=== PATIENT | female | born 1950 | race Caucasian/White ===

== ENCOUNTER 2020-07-02 11:52 | Outpatient (CLI) | payer MEDICARE, OTHER ==
[2020-07-02 15:09] LABS: Anion Gap 19 mmol/L (10-20); BUN (Urea Nitrogen) 24 mg/dL (9.8-20.1); Calc. Creatinine Clearance 0 mL/min (70-130); Calcium 10.1 mg/dL (7.8-10.44); Carbon Dioxide 24 mmol/L (23-31); Chloride 102 mmol/L (98-107); Glucose 154 mg/dL (83-110); Potassium 5.7 mmol/L (3.5-5.1); Sodium 139 mmol/L (136-145)
[2020-07-02 15:11] LABS: Hemoglobin 11.2 g/dL (12.0-15.5); Mean Corpuscular HGB CONC 30.8 g/dL (32.0-36.0); Mean Corpuscular Hemoglobin 30.2 pg (27.0-33.0); Mean Corpuscular Volume 98.1 fl (81.6-98.3); Mean Platelet Volume 11.1 fl (7.4-10.4); Platelet Count 232 10x3/uL (150-450); RBC Distribution Width 14.9 % (11.5-14.5); Red Blood Cell (RBC) Count 3.71 10x6/uL (3.90-5.03); White Blood Cell (WBC) Count 7.4 10x3/uL (3.5-10.5)
[2020-07-03 01:53] LABS: SARS-CoV-2 PCR by NAA Not Detected (NotDetected)
== END 2020-07-02 11:53 | disposition home or self-care (01) ==
LOC: CSHLAB 11:52
PROVIDERS: ATTEND Orthopaedic Surgery
DX: Z01.818 Encounter for other preprocedural examination (principal); Z20.822 Contact with and (suspected) exposure to COVID-19
CPT/HCPCS: 80048; 83036; 85027; 87081; 87635; 93005; 93010; U0003; U0005

== ENCOUNTER 2020-07-02 12:00 | Inpatient (IN) | payer MEDICARE, OTHER ==
[2020-07-07] MEDS ORDERED: Acetaminophen 500 MG TAB ONE (05:54)
[2020-07-07] MEDS ORDERED: Lidocaine 1% MPF 2 ML VIAL ONE (05:55)
[2020-07-07] MEDS ORDERED: CeleCOXIB 100 MG CAP ONE (05:55)
[2020-07-07] MEDS ORDERED: Gabapentin 300 MG CAP ONE (05:55)
[2020-07-07] MEDS ORDERED: Ropivacaine 0.2% HCl/PF 20 ML ONE (06:18)
[2020-07-07] MEDS ORDERED: Ropivacaine 0.5% HCl/PF (150 MG/30 ML VIAL) ONE (06:18)
[2020-07-07] MEDS ORDERED: EPINEPHrine 1 MG/ML AMP ONE ×2 (06:18→06:33)
[2020-07-07] MEDS ORDERED: Lidocaine 1% PF 5 ML VIAL ONE ×2 (06:19→07:11)
[2020-07-07] MEDS ORDERED: Midazolam HCl 2 mg/2 ml Vial ONE (06:19)
[2020-07-07] MEDS ORDERED: Fentanyl 100 MCG/2 ML VIAL ONE (06:19)
[2020-07-07] MEDS ORDERED: Ketorolac Tromethamine 30 MG/ML VIAL ONE ×2 (06:33→11:30)
[2020-07-07] MEDS ORDERED: Milk Of Magnesia 30 ML UDCUP PO PRN (06:34)
[2020-07-07] MEDS ORDERED: Ondansetron PF 4 MG/2 ML Vial IVP PRN (06:34)
[2020-07-07] MEDS ORDERED: HYDROcodone/Acetaminophen 10/325 mg Tablet PO PRN (06:34)
[2020-07-07] MEDS ORDERED: Bisacodyl 10 MG SUPP PR PRN (06:34)
[2020-07-07] MEDS ORDERED: Acetaminophen 325 MG TAB PO PRN (06:34)
[2020-07-07] MEDS ORDERED: diphenhydrAMINE 50 MG CAP PO PRN (06:34)
[2020-07-07] MEDS ORDERED: Tranexamic Acid 1,000 MG/10 ML VIAL ONE (06:34)
[2020-07-07] MEDS ORDERED: Morphine 2 MG/ML VIAL SLOW IVP PRN (06:34)
[2020-07-07] MEDS ORDERED: traMADol HCl 50 MG TAB PO PRN (06:34)
[2020-07-07] MEDS ORDERED: Morphine 1 ML ONE (06:34)
[2020-07-07] MEDS ORDERED: Lidocaine 1% w/Epinephrine 1:100K 20 ML VIAL ONE (06:35)
[2020-07-07] MEDS ORDERED: Ropivacaine 0.2% HCl/PF 40 ML ONE (06:35)
[2020-07-07] MEDS ORDERED: Lidocaine 2% Jelly 5 ML TUBE ONE (07:08)
[2020-07-07] MEDS ORDERED: PROPOFOL 20 ML ONE (07:11)
[2020-07-07] MEDS ORDERED: Rocuronium Bromide 10 MG/ML (10ML VIAL) ONE (07:11)
[2020-07-07] MEDS ORDERED: PHENYLEPHRINE-NS 100 MCG/ML 10 ML SYRINGE ONE (07:28)
[2020-07-07] MEDS ORDERED: ePHEDrine 50 MG/ML VIAL ONE (07:35)
[2020-07-07] MEDS ORDERED: Phenylephrine 10 MG/ML VIAL ONE (07:44)
[2020-07-07] MEDS ORDERED: Albuterol Sulfate HFA (OR ONLY) ONE (09:07)
[2020-07-07] MEDS ORDERED: Glycopyrrolate 0.2 MG/ML 5 ML SYRINGE ONE (09:07)
[2020-07-07] MEDS ORDERED: Ondansetron PF 4 MG/2 ML Vial ONE (09:08)
[2020-07-07] MEDS ORDERED: diphenhydrAMINE 50 MG/ML VIAL ONE ×2 (09:38→09:39)
[2020-07-07] MEDS: Sodium Chloride 0.9% 1,000 ML IV SCH ×2 (12:00→22:03)
[2020-07-07] MEDS: Ketorolac Tromethamine 30 MG/ML VIAL IVP SCH ×2 (12:07→18:05)
[2020-07-07] MEDS: Clindamycin/D5W 900 MG in Premix Bag 1 BAG IVPB SCH ×2 (12:08→17:50)
[2020-07-07 14:02] VITALS: BMI 49.3
[2020-07-07] MEDS: Famotidine 20 MG TAB PO SCH (22:02)
[2020-07-08] MEDS: Ketorolac Tromethamine 30 MG/ML VIAL IVP SCH ×3 (00:18→11:19)
[2020-07-08] MEDS: Famotidine 20 MG TAB PO SCH (09:49)
[2020-07-08 11:58] VITALS: BP 98/65; TEMP 97.3
== END 2020-07-08 12:40 | disposition home health service (06) | DRG 465 ==
LOC: CSHTELE 07-07 05:57
PROVIDERS: ADMIT Orthopaedic Surgery; ATTEND Orthopaedic Surgery
PROC: 0RRJ00Z Replacement of Right Shoulder Joint with Reverse Ball and Socket Synthetic Substitute, Open Approach (ICD-10-PCS; principal; 2020-07-07)
PROC: 0JB70ZZ Excision of Back Subcutaneous Tissue and Fascia, Open Approach (ICD-10-PCS; 2020-07-07)
DX: M19.111 Post-traumatic osteoarthritis, right shoulder (principal); R22.2 Localized swelling, mass and lump, trunk; M25.711 Osteophyte, right shoulder; M81.0 Age-related osteoporosis without current pathological fracture; M75.101 Unspecified rotator cuff tear or rupture of right shoulder, not specified as traumatic; E11.9 Type 2 diabetes mellitus without complications; I10 Essential (primary) hypertension; E78.00 Pure hypercholesterolemia, unspecified; Z79.84 Long term (current) use of oral hypoglycemic drugs; Z79.82 Long term (current) use of aspirin; Z88.5 Allergy status to narcotic agent; Z88.0 Allergy status to penicillin; Z79.899 Other long term (current) drug therapy
CPT/HCPCS: 88304; C1713; J0171; J1200; J1885; J2250; J2270; J2370; J2405; J2704; J2795; J3010; J3370; J3490

== ENCOUNTER 2021-10-02 12:44 | Inpatient (IN) | payer MEDICARE, OTHER ==
[2021-10-02 14:10] LABS: ALT (SGPT) 18 U/L (8-55); AST (SGOT) 24 U/L (5-34); Albumin 3.8 g/dL (3.4-4.8); Alkaline Phosphatase 179 U/L (40-110); Anion Gap 16 mmol/L (10-20); BUN (Urea Nitrogen) 78 mg/dL (9.8-20.1); Bilirubin, Total 0.5 mg/dL (0.2-1.2); Calc. Creatinine Clearance 0 mL/min (70-130); Calcium 9.5 mg/dL (7.8-10.44); Carbon Dioxide 24 mmol/L (23-31); Chloride 106 mmol/L (98-107); Estimated GFR 16; Globulin 3.3 g/dL (2.4-3.5); Glucose 94 mg/dL (83-110); Potassium 6.2 mmol/L (3.5-5.1); Protein, Total 7.1 g/dL (5.8-8.1); Sodium 140 mmol/L (136-145)
[2021-10-02 14:16] LABS: Hemoglobin 7.1 g/dL (12.0-15.5); Mean Corpuscular HGB CONC 31.7 g/dL (32.0-36.0); Mean Corpuscular Hemoglobin 31.8 pg (27.0-33.0); Mean Corpuscular Volume 100.4 fl (81.6-98.3); Mean Platelet Volume 9.3 fl (7.4-10.4); Platelet Count 271 10x3/uL (150-450); RBC Distribution Width 16.7 % (11.5-14.5); Red Blood Cell (RBC) Count 2.23 10x6/uL (3.90-5.03); White Blood Cell (WBC) Count 8.6 10x3/uL (3.5-10.5)
[2021-10-02 14:24] LABS: SARS-CoV-2 NAA Rapid Test Not Detected (NotDetected)
[2021-10-02 14:42] LABS: Bilirubin Neg (Negative); Blood, Urine Negative (Negative); Clarity Clear (Clear); Glucose, Urine (Dipstick) Normal (Negative); Ketone, Urine Negative (Negative); Leukocyte Negative (Negative); Nitrite Negative (Negative); Protein, Urine (Dipstick) Negative (Neg-Trace); Urobilinogen Normal mg/dL (Less than 2)
[2021-10-02 15:03] LABS: Band 5 % (5-11); Eosinophils 1 % (0-10); Lymphocytes 25 % (21-51); Monocytes 10 % (0-10)
[2021-10-02 15:05] LABS: Anisocytosis SLIGHT = 6-15 cells (100X) (0-5/hpf); Hypochromia SLIGHT = 6-15 cells (100X) (0-5/hpf); Macrocytosis SLIGHT = 6-15 cells (100X) (0-5/hpf); Microcytosis SLIGHT = 6-15 cells (100X) (0-5/hpf); Neutrophil 57 % (42-75)
[2021-10-02 15:07] LABS: MDiff Complete? YES; Platelet Morphology Comment Appears Adequate
[2021-10-02] MEDS ORDERED: Calcium Gluc 4.6 MEQ/10 ML (100 MG/ML) ONE (15:37)
[2021-10-02] MEDS ORDERED: Dextrose 50% Abboject 50 ML SYRINGE ONE (15:37)
[2021-10-02] MEDS ORDERED: Insulin Regular 300 UNITS/3 ML VIAL ONE (15:38)
[2021-10-02] MEDS ORDERED: Albuterol Sulfate 2.5 mg/0.5 ml Neb ONE (15:41)
[2021-10-02] MEDS ORDERED: Albuterol Sulfate 2.5 mg/3 ml Neb ONE ×2 (15:42→15:43)
[2021-10-02] MEDS ORDERED: Acetaminophen 500 MG TAB ONE (15:59)
[2021-10-02 16:10] LABS: Actual Bicarbonate (HCO3a) 24.3 mEq/L (22-28); Base Excess (BEa) -0.7 mEq/L (-2.0 to +3.0); CO2 Tension 41.9 mmHg (35.0-45.0); Calcium, Ionized (arterial) 1.29 mmol/L (1.12-1.30); Carboxyhemoglobin (COHb) 0.7 gm% (0.0-3.0); Hemoglobin (Hb) 6.7 g/dL (12.0-16.0); O2 Tension (PaO2), arterial 225.2 mmHg (> 70.0); Potassium - ABG Lab 5.6 mmol/L (3.70-5.30); Puncture Site LRA; pH, Arterial 7.38 (7.35-7.45)
[2021-10-02 16:11] LABS: ALV-art Gradient 78.925 mmHg (0-20)
[2021-10-02] MEDS ORDERED: Furosemide 40 MG/4 ML VIAL ONE (16:35)
[2021-10-02] MEDS ORDERED: Ondansetron PF 4 MG/2 ML Vial IVP PRN (16:49)
[2021-10-02] MEDS ORDERED: Senokot S 8.6-50 MG TAB PO PRN (16:49)
[2021-10-02] MEDS ORDERED: HumaLOG 300 UNITS/3 ML VIAL SC PRN (17:50)
[2021-10-02] MEDS ORDERED: Dextrose 5% in Water 1,000 ML IV PRN (17:50)
[2021-10-02] MEDS ORDERED: Dextrose 50% Abboject 50 ML SYRINGE SLOW IVP PRN (17:50)
[2021-10-02] MEDS ORDERED: hydrALAZINE 20 MG/ML VIAL SLOW IVP PRN (17:54)
[2021-10-02 20:18] LABS: Anion Gap 17 mmol/L (10-20); BUN (Urea Nitrogen) 75 mg/dL (9.8-20.1); Calc. Creatinine Clearance 0 mL/min (70-130); Carbon Dioxide 21 mmol/L (23-31); Chloride 110 mmol/L (98-107); Estimated GFR 17; Glucose 116 mg/dL (83-110); Potassium 4.9 mmol/L (3.5-5.1); Sodium 143 mmol/L (136-145)
[2021-10-02] MEDS ORDERED: Acetaminophen 325 MG TAB ONE (22:03)
[2021-10-02] MEDS: Acetaminophen 325 MG TAB PO PRN (22:10)
[2021-10-03] MEDS ORDERED: Ondansetron PF 4 MG/2 ML Vial ONE (03:08)
[2021-10-03] MEDS ORDERED: Acetaminophen 325 MG TAB ONE ×2 (03:09→10:11)
[2021-10-03] MEDS: Acetaminophen 325 MG TAB PO PRN ×2 (03:15→22:37)
[2021-10-03 03:57] LABS: #Eosinphils 0.1 10x3/uL (0.0-0.5); #Monocytes 1.1 10x3/uL (0.0-1.1); #Neutrophils 3.9 10x3/uL (1.5-8.4); %Basophils 0.5 % (0.0-2.0); %Eosinophils 0.9 % (0.0-6.0); %Lymphocytes 29.9 % (18.0-47.0); %Monocytes 14.3 % (0.0-10.0); %Neutrophils 52.1 % (40.0-75.0); Hemoglobin 6.6 g/dL (12.0-15.5); Mean Corpuscular Hemoglobin 31.6 pg (27.0-33.0); Mean Corpuscular Volume 101.9 fl (81.6-98.3); Mean Platelet Volume 9.4 fl (7.4-10.4); Platelet Count 251 10x3/uL (150-450); RBC Distribution Width 16.3 % (11.5-14.5); Red Blood Cell (RBC) Count 2.09 10x6/uL (3.90-5.03); White Blood Cell (WBC) Count 7.4 10x3/uL (3.5-10.5)
[2021-10-03 04:09] LABS: Anion Gap 18 mmol/L (10-20); BUN (Urea Nitrogen) 67 mg/dL (9.8-20.1); Calc. Creatinine Clearance 0 mL/min (70-130); Calcium 9.9 mg/dL (7.8-10.44); Carbon Dioxide 23 mmol/L (23-31); Chloride 109 mmol/L (98-107); Estimated GFR 22; Glucose 71 mg/dL (83-110); Potassium 5.3 mmol/L (3.5-5.1); Sodium 145 mmol/L (136-145)
[2021-10-03] MEDS ORDERED: Enoxaparin Sodium 30 MG/0.3 ML SYRINGE ONE (07:36)
[2021-10-03] MEDS ORDERED: Enoxaparin Sodium 30 MG/0.3 ML SYRINGE SC SCH (09:00)
[2021-10-03] MEDS: Pantoprazole 40 MG VIAL IVP SCH ×2 (09:04→22:26)
[2021-10-03 09:20] LABS: Troponin I 0.025 ng/mL (< 0.028)
[2021-10-03 09:41] LABS: Anion Gap 19 mmol/L (10-20); BUN (Urea Nitrogen) 63 mg/dL (9.8-20.1); Calc. Creatinine Clearance 0 mL/min (70-130); Calcium 9.9 mg/dL (7.8-10.44); Carbon Dioxide 24 mmol/L (23-31); Chloride 108 mmol/L (98-107); Estimated GFR 23; Glucose 107 mg/dL (83-110); Potassium 5.9 mmol/L (3.5-5.1); Sodium 145 mmol/L (136-145)
[2021-10-03] MEDS ORDERED: Furosemide 20 MG/2 ML VIAL SLOW IVP SCH (10:00)
[2021-10-03 11:13] LABS: Actual Bicarbonate (HCO3a) 24.9 mEq/L (22-28); Base Excess (BEa) 0.4 mEq/L (-2.0 to +3.0); CO2 Tension 39.5 mmHg (35.0-45.0); Calcium, Ionized (arterial) 1.25 mmol/L (1.12-1.30); Carboxyhemoglobin (COHb) 0.6 gm% (0.0-3.0); O2 Tension (PaO2), arterial 64.4 mmHg (> 70.0); Potassium - ABG Lab 5.6 mmol/L (3.70-5.30); Puncture Site LRA; pH, Arterial 7.42 (7.35-7.45)
[2021-10-03 11:15] LABS: ALV-art Gradient 35.955 mmHg (0-20)
[2021-10-03] MEDS ORDERED: Furosemide 40 MG/4 ML VIAL SLOW IVP SCH (11:30)
[2021-10-03] MEDS ORDERED: Furosemide 40 MG/4 ML VIAL ONE ×2 (12:13)
[2021-10-03 15:49] LABS: Anion Gap 17 mmol/L (10-20); BUN (Urea Nitrogen) 60 mg/dL (9.8-20.1); Calc. Creatinine Clearance 0 mL/min (70-130); Calcium 8.3 mg/dL (7.8-10.44); Carbon Dioxide 24 mmol/L (23-31); Chloride 104 mmol/L (98-107); Estimated GFR 23; Glucose 112 mg/dL (83-110); Sodium 139 mmol/L (136-145)
[2021-10-03 16:29] VITALS: BMI 49.8
[2021-10-03] MEDS: HYDROcodone/Acetaminophen 5/325 mg Tablet PO PRN (16:48)
[2021-10-03 17:31] LABS: Bilirubin Neg (Negative); Blood, Urine Negative (Negative); Clarity Clear (Clear); Glucose, Urine (Dipstick) Normal (Negative); Ketone, Urine Negative (Negative); Leukocyte Negative (Negative); Nitrite Negative (Negative); Protein, Urine (Dipstick) Negative (Neg-Trace); Urobilinogen Normal mg/dL (Less than 2)
[2021-10-03 17:40] LABS: Bacteria/HPF Rare-Few HPF (None Seen); RBC/HPF 0-3 HPF (0-3); Squamous Epithelial 0-3 HPF (0-3); WBC/HPF None Seen HPF (0-3)
[2021-10-04 04:56] LABS: #Basophils 0.1 10x3/uL (0.0-0.2); #Eosinphils 0.2 10x3/uL (0.0-0.5); #Monocytes 1.3 10x3/uL (0.0-1.1); #Neutrophils 6.3 10x3/uL (1.5-8.4); %Basophils 0.8 % (0.0-2.0); %Eosinophils 1.8 % (0.0-6.0); %Lymphocytes 14.1 % (18.0-47.0); %Monocytes 14.4 % (0.0-10.0); Hemoglobin 6.9 g/dL (12.0-15.5); Mean Corpuscular HGB CONC 30.5 g/dL (32.0-36.0); Mean Corpuscular Hemoglobin 30.8 pg (27.0-33.0); Mean Corpuscular Volume 100.9 fl (81.6-98.3); Mean Platelet Volume 9.4 fl (7.4-10.4); Platelet Count 257 10x3/uL (150-450); RBC Distribution Width 16.1 % (11.5-14.5); Red Blood Cell (RBC) Count 2.24 10x6/uL (3.90-5.03); White Blood Cell (WBC) Count 9.3 10x3/uL (3.5-10.5)
[2021-10-04 05:12] LABS: Anion Gap 18 mmol/L (10-20); BUN (Urea Nitrogen) 51 mg/dL (9.8-20.1); Calc. Creatinine Clearance 58 mL/min (70-130); Calcium 9.3 mg/dL (7.8-10.44); Carbon Dioxide 23 mmol/L (23-31); Chloride 108 mmol/L (98-107); Estimated GFR 29; Glucose 112 mg/dL (83-110); Sodium 144 mmol/L (136-145)
[2021-10-04] MEDS: Acetaminophen 325 MG TAB PO PRN (05:46)
[2021-10-04] MEDS ORDERED: LOKELMA 10 GM PACKET PO SCH (09:45)
[2021-10-04] MEDS: Pantoprazole 40 MG VIAL IVP SCH ×2 (09:57→20:28)
[2021-10-04] MEDS ORDERED: Carvedilol 6.25 MG TAB PO SCH (10:15)
[2021-10-04] MEDS ORDERED: Furosemide 40 MG/4 ML VIAL IVP SCH (10:15)
[2021-10-04] MEDS: HYDROcodone/Acetaminophen 5/325 mg Tablet PO PRN ×2 (10:15→20:39)
[2021-10-04 17:21] LABS: #Basophils 0.1 10x3/uL (0.0-0.2); #Eosinphils 0.3 10x3/uL (0.0-0.5); #Neutrophils 4.4 10x3/uL (1.5-8.4); %Basophils 0.7 % (0.0-2.0); %Eosinophils 3.3 % (0.0-6.0); %Lymphocytes 27.6 % (18.0-47.0); %Monocytes 12.5 % (0.0-10.0); %Neutrophils 54.1 % (40.0-75.0); Hemoglobin 8.2 g/dL (12.0-15.5); Mean Corpuscular HGB CONC 31.3 g/dL (32.0-36.0); Mean Corpuscular Hemoglobin 30.8 pg (27.0-33.0); Mean Corpuscular Volume 98.5 fl (81.6-98.3); Platelet Count 258 10x3/uL (150-450); Red Blood Cell (RBC) Count 2.66 10x6/uL (3.90-5.03); White Blood Cell (WBC) Count 8.2 10x3/uL (3.5-10.5)
[2021-10-04 17:25] LABS: Anion Gap 13 mmol/L (10-20); BUN (Urea Nitrogen) 41 mg/dL (9.8-20.1); Calc. Creatinine Clearance 64 mL/min (70-130); Calcium 10.1 mg/dL (7.8-10.44); Carbon Dioxide 28 mmol/L (23-31); Chloride 104 mmol/L (98-107); Estimated GFR 33; Glucose 99 mg/dL (83-110); Potassium 4.4 mmol/L (3.5-5.1); Sodium 141 mmol/L (136-145)
[2021-10-04] MEDS: Carvedilol 6.25 MG TAB PO SCH (18:10)
[2021-10-04] MEDS ORDERED: Pantoprazole 40 MG VIAL ONE (19:58)
[2021-10-05 01:16] LABS: Anion Gap 13 mmol/L (10-20); BUN (Urea Nitrogen) 38 mg/dL (9.8-20.1); Calc. Creatinine Clearance 67 mL/min (70-130); Calcium 9.5 mg/dL (7.8-10.44); Carbon Dioxide 25 mmol/L (23-31); Chloride 108 mmol/L (98-107); Estimated GFR 35; Glucose 96 mg/dL (83-110); Potassium 4.1 mmol/L (3.5-5.1); Sodium 142 mmol/L (136-145)
[2021-10-05] MEDS: HYDROcodone/Acetaminophen 5/325 mg Tablet PO PRN ×2 (03:21→09:10)
[2021-10-05 04:51] LABS: #Basophils 0.1 10x3/uL (0.0-0.2); #Eosinphils 0.3 10x3/uL (0.0-0.5); #Neutrophils 3.1 10x3/uL (1.5-8.4); %Basophils 0.7 % (0.0-2.0); %Eosinophils 3.6 % (0.0-6.0); %Lymphocytes 34.6 % (18.0-47.0); %Monocytes 14.4 % (0.0-10.0); %Neutrophils 43.4 % (40.0-75.0); Hemoglobin 7.3 g/dL (12.0-15.5); Mean Corpuscular HGB CONC 30.9 g/dL (32.0-36.0); Mean Corpuscular Hemoglobin 31.2 pg (27.0-33.0); Mean Corpuscular Volume 100.9 fl (81.6-98.3); Mean Platelet Volume 9.1 fl (7.4-10.4); Platelet Count 225 10x3/uL (150-450); RBC Distribution Width 17.1 % (11.5-14.5); Red Blood Cell (RBC) Count 2.34 10x6/uL (3.90-5.03)
[2021-10-05 05:04] LABS: Anion Gap 14 mmol/L (10-20); BUN (Urea Nitrogen) 35 mg/dL (9.8-20.1); Calc. Creatinine Clearance 70 mL/min (70-130); Calcium 9.6 mg/dL (7.8-10.44); Carbon Dioxide 26 mmol/L (23-31); Chloride 108 mmol/L (98-107); Estimated GFR 37; Glucose 99 mg/dL (83-110); Potassium 4.5 mmol/L (3.5-5.1); Sodium 143 mmol/L (136-145)
[2021-10-05 08:52] VITALS: TEMP 97.3
[2021-10-05] MEDS ORDERED: Carvedilol 3.125 MG TAB PO SCH ×2 (09:00→17:00)
[2021-10-05] MEDS: Carvedilol 6.25 MG TAB PO SCH (09:02)
[2021-10-05] MEDS: Pantoprazole 40 MG VIAL IVP SCH (09:11)
[2021-10-05 11:02] VITALS: BP 119/54
== END 2021-10-05 11:15 | disposition home or self-care (01) | DRG 682 ==
LOC: CSHERS 12:44 → CSHERHOLD 20:15 → CSHTELE 10-03 16:01
PROVIDERS: ADMIT Family Medicine; ATTEND Family Medicine
PROC: 30233N1 Transfusion of Nonautologous Red Blood Cells into Peripheral Vein, Percutaneous Approach (ICD-10-PCS; principal; 2021-10-03)
DX: N17.9 Acute kidney failure, unspecified (principal); I50.33 Acute on chronic diastolic (congestive) heart failure; G93.41 Metabolic encephalopathy; I13.0 Hypertensive heart and chronic kidney disease with heart failure and stage 1 through stage 4 chronic kidney disease, or unspecified chronic kidney disease; Z68.42 Body mass index [BMI] 45.0-49.9, adult; E11.22 Type 2 diabetes mellitus with diabetic chronic kidney disease; Z20.822 Contact with and (suspected) exposure to COVID-19; K21.9 Gastro-esophageal reflux disease without esophagitis; Z96.611 Presence of right artificial shoulder joint; Z96.612 Presence of left artificial shoulder joint; Z96.653 Presence of artificial knee joint, bilateral; E66.01 Morbid (severe) obesity due to excess calories; N18.4 Chronic kidney disease, stage 4 (severe); D63.1 Anemia in chronic kidney disease; E87.5 Hyperkalemia; Z88.1 Allergy status to other antibiotic agents; Z88.0 Allergy status to penicillin; Z88.8 Allergy status to other drugs, medicaments and biological substances; Z79.899 Other long term (current) drug therapy; Z79.82 Long term (current) use of aspirin; Z98.51 Tubal ligation status; Z82.49 Family history of ischemic heart disease and other diseases of the circulatory system; Z80.9 Family history of malignant neoplasm, unspecified
CPT/HCPCS: 36415; 36416; 36430; 36600; 71045; 76770; 80048; 80053; 81001; 81003; 82728; 82805; 83540; 83615; 83880; 84484; 85025; 85046; 86850; 86900; 86901; 93005; 93010; 94640; C9113; J0610; J1650; J1815; J1940; J2405; J7611; J7999; P9016; U0002

== ENCOUNTER 2025-01-10 08:52 | Outpatient (CLI) | payer MEDICARE | END 2025-01-10 08:53 | disposition home or self-care (01) | LOC: CSHULT 08:52 | PROVIDERS: ATTEND Family Medicine | DX: R74.01 Elevation of levels of liver transaminase levels (principal); R16.0 Hepatomegaly, not elsewhere classified | CPT/HCPCS: 76705 ==